=== PATIENT | male | born 1945 | race Caucasian/White ===

== ENCOUNTER 2021-04-30 08:41 | Day surgery (SDC) | payer MEDICARE, BC ==
[~2021-04-30] VITALS: Ht 172.7 cm; Wt 84.0 kg
[2021-04-30] VITALS (321 sets, daily range): BP systolic 105–169; BP diastolic 64–92; PULSE 60–91; TEMP 98–98.1; O2SAT 82–100
[2021-04-30] MEDS ORDERED: COZAAR100 MG PO (09:35)
[2021-04-30 09:36] LABS: HEMATOCRIT 44.4 % (42.0-52.0); HEMOGLOBIN 14.7 g/dl (13.5-18.0); MEAN CELL VOLUME 95 fl (80.0-100.0); MEAN CORPUSCULAR HEMOGLOBIN 32 pg (27.0-31.0); MEAN CORPUSCULAR HGB CONC 33 g/dl (33.0-37.0); MEAN PLATELET VOLUME 9.5 fl (7.4-10.4); PLATELET COUNT 250 K/mm3 (130-400); RED BLOOD COUNT 4.66 M/mm3 (4.20-5.60); REDCELL DISTRIBUTION WIDTH-CV 14.9 % (11.5-14.5)
[2021-04-30] MEDS ORDERED: ZIAC 10/6.25M1 UDTAB PO (09:36)
[2021-04-30] MEDS ORDERED: HYTRIN 1MG C1 MG/CAP PO (09:37)
[2021-04-30] MEDS ORDERED: ZYLOPRIM 100MG100 MG PO (09:37)
[2021-04-30] MEDS ORDERED: CRESTOR20 MG PO (09:38)
[2021-04-30] MEDS ORDERED: ZOLOFT 100MG100 MG PO (09:38)
[2021-04-30] MEDS ORDERED: VERAPAMIL180 MG/TAB PO (09:38)
[2021-04-30] MEDS ORDERED: PROTONIX 40MG T40 MG PO (09:39)
[2021-04-30] MEDS ORDERED: RT ADVAIR 228 DISKUS IH (09:40)
[2021-04-30] MEDS ORDERED: PROAIR HFA0.09 MG/AC IH (09:40)
[2021-04-30] MEDS ORDERED: ASPIRIN E.C. 8181 MG PO (09:41)
[2021-04-30] MEDS ORDERED: FISH OIL 500 M1 EAC1 PO (09:41)
[2021-04-30] MEDS ORDERED: PLAVIX 75MG TAB75 MG PO (09:41)
[2021-04-30] MEDS ORDERED: MASON NATURAL2000 IU PO (09:42)
[2021-04-30] MEDS ORDERED: VITAMIN B12 1541 TAB PO (09:42)
[2021-04-30 09:45] LABS: INR 1.1 (0.8-3.0); PROTHROMBIN TIME 11.7 SECONDS (9.7-12.8)
[2021-04-30 09:46] LABS: CALCIUM 9.3 mg/dL (8.4-10.2); CREATININE, serum 1.67 (0.66-1.25); POTASSIUM 4.7 mmol/L (3.4-5.0)
[2021-04-30 09:47] LABS: PARTIAL THROMBOPLASTIN TIME 27.9 SECONDS (26.0-37.0)
--- NOTE | 2021-04-30 11:30 | NUR ---
Dr. Covington notified of timing since Heparin dosing, states no ACT at this time.
--- NOTE | 2021-04-30 13:40 | NUR ---
To ICU 6 via bed with this RN from [employer]. Continues to have 2 TR bands on to right radial area. Patient does have hematoma, Dr. Covington aware. Integrilin infusing per order. Patient sitting up in bed 45 deg with O2 at 8/OM. A/O x4 at this time.
--- NOTE | 2021-04-30 14:10 | NUR ---
Report from RADHA Carrillo laborer adjustable steel joist nurse.
--- NOTE | 2021-04-30 14:19 | NUR ---
Dr. Covington called DT increase in swelling in right forearm. 1427 Dr. Covington at bedside. Assesses site and manual cuff applied to MAIA at 70mmHG at this time.
[2021-04-30 14:51] LABS: BASO # 0.1 (0.0-0.2); BASO % 0.5 % (0.0-2.0); EOS # 0.1 (0.0-0.7); EOS % 1.1 % (0-4.0); HEMATOCRIT 44.9 % (42.0-52.0); HEMOGLOBIN 14.8 g/dl (13.5-18.0); LYMPH # 1.1 (1.2-3.4); LYMPH % 8.7 % (20.0-51.0); MEAN CELL VOLUME 95 fl (80.0-100.0); MEAN CORPUSCULAR HEMOGLOBIN 31 pg (27.0-31.0); MEAN CORPUSCULAR HGB CONC 33 g/dl (33.0-37.0); MEAN PLATELET VOLUME 9.1 fl (7.4-10.4); MONO # 0.6 (0.1-0.6); MONO % 4.3 % (1.7-9.3); PLATELET COUNT 257 K/mm3 (130-400); RED BLOOD COUNT 4.71 M/mm3 (4.20-5.60); REDCELL DISTRIBUTION WIDTH-CV 14.8 % (11.5-14.5)
--- NOTE | 2021-04-30 14:52 | NUR ---
Report given to Ame RN and care turned over at this time.
--- NOTE | 2021-04-30 15:00 | NUR ---
Patient laying in bed, HOB elevated. VSS 8L oxymask, no reported SOB. IV CDI. TR bands x2 right arm intact. BP cuff MAIA at 70. Patient reports numbness and pain above the TR bands, Dr Covington aware. Patient can move fingers and CMS WNL. Will continue to monitor. A&Ox3. at the bedside. Patient instructed to stay in bed. No further needs expressed from the patient. Continue Post OP VS monitoring. Call light within reach
--- NOTE | 2021-04-30 15:26 | NUR ---
Increased swelling in right forearm, marked with sharpie. New area marked, soft. CMS WNL. Will continue to monitor. TR bandsx2 intact. BP cuff MAIA at 70. Call light within reach
--- NOTE | 2021-04-30 17:00 | NUR ---
Increased swelling in right arm and Dr. Covington notified. 5ml air added to the TR band proximal to the right hand. Total of 21ml in TR band and arm wrapped in bianca bandage per Dr Covington orders. CMS right arm WNL. Patient reporting numbness in fingers and pain above TR bands. BP cuff MAIA 80. VSS. 8L oxymask, no SOB. Patient reporting trouble urinating and wanting to have a BM, but only passing gas. No further needs expressed from the patient. Call light within reach
[2021-05-01] VITALS (458 sets, daily range): BP systolic 109–140; BP diastolic 48–74; PULSE 60–82; TEMP 97.7–98.4; O2SAT 76–100
--- NOTE | 2021-05-01 07:42 | NUR ---
Report recieved from RADHA Quigley
--- NOTE | 2021-05-01 08:35 | NUR ---
Dr. Covington in to see patient. Dr. Covington removed both TR bands and blood pressure cuff this AM. No active bleeding noted. Patient has increased swelling in that arm. Noted 38 cm at the abelardo on his right arm. Ultrasound when MD in room. Per MD report not noted pseudo-aneurysm noted. Patient has large blister at wrist with smaller one also noted. Upper arm where blood pressure cuff was inflated. Noted [address] Covington is aware and instructed patient to keep blisters clean/dry and watch for any s/s of infection. Patient continues to c/o pain in right arm and decreased movement due to swelling. MD incouraged warm and/or cold packs and to keep arm elevated Patient encouraged movement of fingers to aid in reduction of swelling. Patient currently on 10l/oxy mask. Patient is chronic COPD and Dr. Covington stated to wean 02 with goal of 02 sats 88-90%. Patient's at bedside. No other concerns at this time.
--- NOTE | 2021-05-01 08:55 | NUR ---
Patient changed from Oxymask to 5L/NC so that he can eat breakfast. Patient sats range from 89-94%. No distress noted this AM
--- NOTE | 2021-05-01 09:58 | NUR ---
Initial visit; Patient and his thanked Heating And Cooling Technician for offering God's blessings and to keep Henrique in her prayers.
--- NOTE | 2021-05-01 10:53 | NUR ---
Patient is alert and oriented x 3. Is able to use call light and understands the need for assistance to get up due to multiple cords. Patient is not on fall percautions at this time. Will re-evaluate as needed. Reports right arm is feeling better. Still remains numb. Blisters intact. Currently measures 33 cm at marked site. No other needs at this time
--- NOTE | 2021-05-01 11:40 | NUR ---
02 turned down to 3L/NC. 02 sats remain 89-92%
--- NOTE | 2021-05-01 12:32 | NUR ---
Plan is to return to home. Patient reports that [place] resides [place] of [place]. is Mildred , PCP is Dr. Vital in [place] and RX obtain in [place] or [place]. 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 Patient indicated that he is usually independent. Patient report no use of any DME. Patent shares that he does no need any support for care. Educated on care supports. Offered support and how to request if he believes he needs it. Nothing Follows.
--- NOTE | 2021-05-01 15:37 | NUR ---
Patient resting in bed with at bedside. Noted decrease in swelling to right arm. Approx 31 cm at the marked area. Blisters remain intact. Patient 02 turned off approx 1/2 hour ago. 02 sats 86-92%. Denies any new or worsening shortness of breathe. Patient states pain is better after pain pill. Now rating 3/10. No other needs at this time
[2021-05-01] MEDS ORDERED: PERCOCET 325 MG1 TA2 PO (17:06)
--- NOTE | 2021-05-01 18:00 | NUR ---
Assisted patient to get shoes on. Transfered to w/c. Patient's daughter here to take patient and his home. Patient discharged at this time
== END 2021-05-01 18:00 | disposition home or self-care (01) ==
LOC: COL.CAR 08:41 → ICU 13:40 → COL.CAR 05-01 18:00
PROVIDERS: Internal Medicine Cardiovascular Disease
DX: I25.10 Atherosclerotic heart disease of native coronary artery without angina pectoris (principal); I12.9 Hypertensive chronic kidney disease with stage 1 through stage 4 chronic kidney disease, or unspecified chronic kidney disease; N18.30 Chronic kidney disease, stage 3 unspecified; Z79.899 Other long term (current) drug therapy; L76.32 Postprocedural hematoma of skin and subcutaneous tissue following other procedure; J44.9 Chronic obstructive pulmonary disease, unspecified; R09.02 Hypoxemia; I73.9 Peripheral vascular disease, unspecified; F17.210 Nicotine dependence, cigarettes, uncomplicated; Z79.82 Long term (current) use of aspirin; E78.5 Hyperlipidemia, unspecified; Z79.02 Long term (current) use of antithrombotics/antiplatelets; Z79.51 Long term (current) use of inhaled steroids
CPT/HCPCS: OP; C1725; C1769; C1874; C1887; C9600; J1327; J1644; J1940; J2250; J3010; J7030

== ENCOUNTER 2021-11-05 08:49 | Day surgery (SDC) | payer MEDICARE, BC ==
[2021-11-05] VITALS (17 sets, daily range): BP systolic 101–155; BP diastolic 51–73; PULSE 55–65; TEMP 97.4–98.3
[~2021-11-05] VITALS: Wt 90.6 kg
[~2021-11-05 08:49] MED LIST: ASPIRIN E.C. 8181 MG PO; COZAAR100 MG PO; CRESTOR20 MG PO; FISH OIL 500 M1 EAC1 PO; HYTRIN 1MG C1 MG/CAP PO; MASON NATURAL2000 IU PO; PERCOCET 325 MG1 TA2 PO; PLAVIX 75MG TAB75 MG PO; PROAIR HFA0.09 MG/AC IH; PROTONIX 40MG T40 MG PO; RT ADVAIR 228 DISKUS IH; VERAPAMIL180 MG/TAB PO; VITAMIN B12 1541 TAB PO; ZIAC 10/6.25M1 UDTAB PO; ZOLOFT 100MG100 MG PO; ZYLOPRIM 100MG100 MG PO
[2021-11-05 09:41] LABS: HEMATOCRIT 47.6 % (42.0-52.0); HEMOGLOBIN 16.2 g/dl (13.5-18.0); MEAN CELL VOLUME 93 fl (80.0-100.0); MEAN CORPUSCULAR HEMOGLOBIN 32 pg (27-31); MEAN CORPUSCULAR HGB CONC 34 g/dl (33.0-37.0); MEAN PLATELET VOLUME 9.6 fl (7.4-10.4); PLATELET COUNT 225 K/mm3 (130-400); RED BLOOD COUNT 5.14 M/mm3 (4.20-5.60); REDCELL DISTRIBUTION WIDTH-CV 15.9 % (11.5-14.5)
[2021-11-05 09:49] LABS: INR 1.1 (0.8-3.0); PROTHROMBIN TIME 12.5 SECONDS (9.7-12.8)
[2021-11-05] MEDS ORDERED: LASIX 40MG TABL40 MG PO (09:51)
[2021-11-05] MEDS ORDERED: NORVASC2.5 MG PO (09:51)
[2021-11-05] MEDS ORDERED: RANEXA 500MG T500 MG PO (09:52)
[2021-11-05 09:59] LABS: CALCIUM 9.3 mg/dL (8.4-10.2); CREATININE, serum 2.95 mg/dL (0.72-1.25); POTASSIUM 4.8 mmol/L (3.5-4.5)
--- NOTE | 2021-11-05 11:12 | NUR ---
Dr Covington into see pt, reported lab work CR and Potassium to with no new orders. Also that pt took asa 81mg po today and plavix 75 last evening with no orders to supplement
--- NOTE | 2021-11-05 11:20 | NUR ---
also reported to Dr Covington, pt baseline sats are 88-90%, 02 1l/min applied, sats con't same and at times 91%, pt has no c/o sob while resting, lung sounds diminished bilateral, no cough
--- NOTE | 2021-11-05 13:31 | NUR ---
SEE MERGE FOR ALL MEDICATION ADMINISTRATION TIMES/DOSAGES AND INTRA/POST PROCEDURE SEDATION ASSESSMENTS.
--- NOTE | 2021-11-05 16:08 | NUR ---
PT ARRIVED TO ROOM 343 VIA BED. VSS. ON 4 L OXYMASK. PT DENIES PAIN. NO ACTIVE BLEEDING NOTED TO BOTH RIGHT RADIAL AND RIGHT GROIN SITES.
--- NOTE | 2021-11-05 18:14 | NUR ---
AFTER 2 HRS FLAT TIME, 5CC WAS PULLED OFF TR BAND AND RADIAL SITE IMMEDIATELY STARTED TO OOZE. 5 CC WAS PUT BACK IN. RIGHT GROIN SITE HAS SWELLING BUT IS SOFT AFTER APPLYING MANUAL PRESSURE AND SANDBAG. DR KEARNS NOTIFIED, ORDERED FOR PT TO STAY ON BEDREST FOR 2 MORE HOURS AND TO HOLD PLAVIX. AFTER 2 HRS, REMOVE 2 CC OFF TR BAND. CONTINUE SANDBAG TO GROIN SITE.
--- NOTE | 2021-11-06 00:18 | NUR ---
Patient assessed around 2009. Slowly started taking 2 mls of air at a time to TR band to right radial heart cath site. Able to take off around 2244, and bandaid applied. Right femoral site soft, some bruising surrounding site, dressing CDI. Took off sandbag to site. Denies pain and discomfort. Continues on oxygen at 3.5 L/min via oxymask. Voices no questions, needs, or concerns at this time. In bed with call light within reach.
[2021-11-06 04:52] VITALS: BP 128/60; PULSE 53; TEMP 97.7
--- NOTE | 2021-11-06 05:42 | NUR ---
Patient has been resting in bed with call light within reach. Denies pain and discomfort. Voices no questions, needs, or concerns at this time. In bed with call light within reach.
[2021-11-06 07:48] VITALS: BP 155/51; PULSE 59; PULSE 77; TEMP 97.8
--- NOTE | 2021-11-06 08:44 | NUR ---
Called. He has seen patient this am and discharge orders obtained. I discussed with him patient O2 saturateds in 80s on room air. aware reports patient lives in the 80s. Did get orders for Exercise oximety & socail services to assist with Home O2.
--- NOTE | 2021-11-06 09:33 | NUR ---
Patient frustrated and upset about delay in discharge due to neding home O2. Lindsay with socail work assisiting
--- NOTE | 2021-11-06 10:25 | NUR ---
Initial visit attempt; Patient occupied, Sanitary Aide spoke with his ; Mildred who stated that Nahid was doing better and that they were preparing to be discharged. Mildred thanked for keeping them in her prayers.
[2021-11-06 10:57] VITALS: BP 115/56; PULSE 59; TEMP 97.6
--- NOTE | 2021-11-06 12:35 | NUR ---
Performed shift assessment and administered morning medications. Patient was aggitated about hospital stay. Patient's O2 decreased to 79 percent upon removal of oxygen nasal cannula. Patient was asked to sit up in order to listen to lung sounds, patient became short of breath during assessment. Oxygen was applied after assessment, O2 saturation increased to 91 percent. Patient stated pain level was at a 1 and associated with radial puncture site. Radial site was clean and dry. Groin site was clean and dry as well. No edema noted on extremities. Patient refused hygiene and asked about discharge.
--- NOTE | 2021-11-06 13:32 | NUR ---
Student Activities Director spoke with Ivy GARCIA who advised patient has orders for discharge, however has been requiring 4 liters of oxygen and will need this to go home. SW followed up with patient and his to review the above information. Patient expressed frustration and stated he wanted to leave as soon as possible. LUCINDA reviewed the process for setting up home oxygen and patient is agreeable to have referral for home oxygen [facility] to [facility] Patient is agreeable to participate in exercise oximetry. LUCINDA collaborated with RT Jewell who advised patient needs 4 liters of oxygen at rest and 6 liters with ambulation. LUCINDA contacted Jef at [facility] and faxed referral with order for oxygen. Jef will have oxygen delivered to patient's room. LUCINDA met with patient again and he was agreeable to wait for oxygen to be delivered. LUCINDA updated Ivy GARCIA.
--- NOTE | 2021-11-06 13:46 | NUR ---
Patient and were given discharge instructions on post cardiac cath radial and femoral site care. Patient was given signs and symptoms to return to ER and patient understood teaching. IV was DC. Reviewed medication list as well as follow up appointment with cardiology. Patient had no further questions and was waiting for O2 to discharge home with . Patient was much more pleasant after receiving discharge care and instructions.
--- NOTE | 2021-11-06 14:11 | NUR ---
Middle School English Teacher contacted patient's primary care office and notified RN that patient was set up with home oxygen. Patient has a follow up scheduled for 11/18/2021.
--- NOTE | 2021-11-06 15:11 | NUR ---
BREATH EASY AT BEDSIDE GOING OVER HOME O2. JAVI HAS BEEN PATIENTLY WAITING.
--- NOTE | 2021-11-06 15:28 | NUR ---
Patient taken out with all belongings including home O2.
== END 2021-11-06 15:31 | disposition home or self-care (01) ==
LOC: COL.CAR 08:49 → SURG 15:45 → COL.CAR 11-06 15:31
PROVIDERS: Internal Medicine Cardiovascular Disease
DX: I25.10 Atherosclerotic heart disease of native coronary artery without angina pectoris (principal); I25.9 Chronic ischemic heart disease, unspecified; I73.9 Peripheral vascular disease, unspecified; I12.9 Hypertensive chronic kidney disease with stage 1 through stage 4 chronic kidney disease, or unspecified chronic kidney disease; N18.9 Chronic kidney disease, unspecified; J44.9 Chronic obstructive pulmonary disease, unspecified; E78.5 Hyperlipidemia, unspecified; Z79.899 Other long term (current) drug therapy; Z79.82 Long term (current) use of aspirin; Z79.02 Long term (current) use of antithrombotics/antiplatelets; Z90.49 Acquired absence of other specified parts of digestive tract; Z87.891 Personal history of nicotine dependence
CPT/HCPCS: OP; J1644; J3010; J7030; Q9967